=== PATIENT | male | born 1950 | race Two or more races ===

== ENCOUNTER 2024-11-12 10:30 | Day surgery (SDC) | payer MEDICAID, SELFPAY ==
--- NOTE | 2024-11-11 12:19 | EKG_ITS ---
[facility] Test Date: 2024-11-11 Pat Name: IDA CASTANEDA Department: Room: - Gender: Female Desk Maker: NAVA : 1950 Requested By: Seth Lockhart Order Number: [id number] Reading MD: Seth Lockhart Measurements Intervals [place] Rate: 59 P: 40 PA: 154 QRS: -5 QRSD: 104 T: 43 QT: 406 QTc: 405 Interpretive Statements SINUS BRADYCARDIA No previous ECG available for comparison /store/S0/[id number]/[id number]
[2024-11-11 12:23] VITALS: BMI 29.0
[2024-11-11 13:30] LABS: Basophils # (Auto) 0.1 Thou/mm3 (0.0-0.2); Basophils % (Auto) 2 % (0-2.5); Eosinophils # (Auto) 0.3 Thou/mm3 (0.0-0.5); Eosinophils % (Auto) 4 % (0-10); Hematocrit 44.5 % (36.0-46.0); Hemoglobin 14.7 g/dL (12.0-16.0); Immature Granulocytes % (Auto) 0 % (0-0); Immature Granulocytes Auto 0.02 Thou/mm3 (0.00-0.00); Lymphocytes # (Auto) 2.2 Thou/mm3 (1.0-4.8); Lymphocytes % (Auto) 31 % (10-50); Mean Corpuscular Hemoglobin 29.9 pg (25.0-35.0); Mean Corpuscular Volume 91 fL (80-100); Monocytes # (Auto) 0.4 Thou/mm3 (0.0-0.8); Monocytes % (Auto) 6 % (0-12); Neutrophils # (Auto) 4.1 Thou/mm3 (1.8-7.7); Neutrophils % (Auto) 57 % (37-80); Nucleated Red Blood Cell % 0 /100 WBC (0); Platelet Count 323 Thou/mm3 (140-440); Red Blood Count 4.91 Miln/mm3 (4.00-5.20); White Blood Count 7.2 Thou/mm3 (3.6-11.0)
[2024-11-11 13:46] LABS: Partial Thromboplastin Time 26.1 Seconds (22.0-36.0); Prothrombin Time 10.8 Seconds (9.0-12.2)
[2024-11-11 13:53] LABS: Alanine Aminotransferase 16 U/L (10-49); Albumin, Serum 4.6 gm/dL (3.4-4.8); Albumin/Globulin Ratio 1.5 (1.2-2.2); Alkaline Phosphatase 109 U/L (46-116); Anion Gap 9 (7-16); Aspartate Amino Transferase 22 U/L (0-34); BUN/Creatinine Ratio 17 Ratio (12-20); Bilirubin,Total 0.8 mg/dL (0.3-1.2); Blood Urea Nitrogen 15 mg/dL (9-23); Calcium 9.6 mg/dL (8.3-10.6); Calcium (Corrected) 9.6 mg/dL (8.5-10.1); Chloride 108 mMol/L (98-107); Creatinine (Component) 0.9 mg/dL (0.6-1.3); Estimated Creatinine Clearance 57.2 mL/min (>60); Glucose 100 mg/dL (74-106); Osmolality,Calculated 287 (275-295); Potassium 4.2 mMol/L (3.4-5.1); Sodium 144 mMol/L (136-145); Total Protein 7.6 gm/dL (5.7-8.2); eGFR > 60 See Note
--- NOTE | 2024-11-11 15:08 | SUR.PREOP ---
voice message left for pt to come in tomorrow at 0041
--- NOTE | 2024-11-11 15:33 | ESHP_ITS ---
RE: IDA AGARWAL : 1950 DATE OF ADMISSION: 11/11/2024 HISTORY OF PRESENT COMPLAINT: As per the patient, he has pain in the left shoulder. Pain is quite bad. Quality of life and activities of daily living is affected. The patient graded intensity of pain 10/10. The sleep is affected as well. The patient did physical therapy, but it did not improve. PAST MEDICAL HISTORY: No history of diabetes mellitus, high blood pressure, asthma, seizure, chest pain, myocardial infarction, bleeding disorder or stroke. PAST SURGICAL HISTORY: Nil. DRUG HISTORY: Nil, except pain medication on and off. ALLERGIES: NIL KNOWN. FAMILY HISTORY/SOCIAL HISTORY: The patient denies smoking, drinking and is not working. PHYSICAL EXAMINATION: GENERAL: Normal with person. VITAL SIGNS: Pulse 88 per minute, blood pressure is 136/84. NECK: Soft, supple. No mass felt. Trachea is unreplaced. CARDIOVASCULAR SYSTEM: First and second heart sounds normal. No murmur heard. LUNGS: Bilateral vascular breath sounds. CHEST: Clear. ABDOMEN: Soft, supple. No mass felt. Bowel sounds present. EXTREMITIES: Left shoulder examination reveals 2+ tenderness at AC joint. Active range of motion is 0 to 120 degrees of flexion and 0 to 80 degrees of abduction. Erica test is positive. Drop arm test is positive. Impingement test is positive as well. 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 There are osteophytes which are impinging on the rotator cuff. Detailed discussion took place with the patient. With the help of pictures, diagram, posters, and shoulder model, the procedure was explained to him. Detailed discussion took place about the pain and reason for the same. Risks of anesthesia were explained and that includes, but not limited to the reaction to the occasions, cardiac arrest, rarely it might be fatal. Risks with operation includes infection and if that happens, the patient may need further surgical procedure. Other risks include delayed healing wounds, etc.. No guarantee is given regarding the outcome of the procedure and/or relief of symptoms. Although MRI scan showed tendinitis, but with this kind of problem and pain, most of the time I do find a partial tear of the rotator cuff. The patient wants to proceed with surgery as he is unable to sleep at night at all. The patient is also cleared for surgical procedure by Dr. Serrato. ASSESSMENT AND PLAN: Surgery is booked for 11/12/2024. DT: 12:55:14 TT: 15:32:00 Ref: [id number] - TID: [id number]
[2024-11-12] VITALS (8 sets, daily range): BP systolic 92–148; BP diastolic 60–86; PULSE 38–79; RESP 12–22; TEMP 36.3–36.8; O2SAT 93–100; BMI 29.0
--- NOTE | 2024-11-12 14:55 | PD.SUROPNT ---
Date of Procedure 11/12/24 Pre Op Diagnosis 1. Left rotator cuff tear 2 left shoulder impingement syndrome Post Op Diagnosis Same Procedure 1. Excision lateral end of the clavicle 2 excision coracoacromial ligament 3 acromioplasty 4. Repair of rotator cuff 5. Manipulation under anesthesia Findings Patient has significant DJD at AC joint. Beside that there is a big osteophytes on the frontal aspect of the acromial process. There is a small osteophyte on the lateral aspect as well. There was a small oval tear of the rotator cuff but most of the fibers were attached to the greater tuberosity. Patient also has adhesive capsulitis Procedure Description The patient was given general endotracheal anesthesia. Left shoulder block was also given. Once satisfactory anesthesia was achieved patient was put in about 45?? sitting position with sandbag underneath the left shoulder blade. The part was thoroughly prepped and draped. A skin incision was made at the AC joint extending proximally towards the neck for a half inches and distally towards the arm for about couple of inches. Deeper dissection was carried out. Bleeding vessels were electrocoagulated as and when encountered. The soft tissue was reflected. Following that AC joint was exposed and AC joint was exposed. The deltoid muscle was reflected from the anterior and lateral aspect of the acromial process. It showed 2 to 3 mm anterior osteophytes which was touching the rotator cuff tendons. Beside that there is 1 to 2 mm lateral osteophytes coming out from the acromial process. Following that a periosteal elevator was placed underneath the lateral end of the clavicle and lateral 3-4 mm was excised. The coracoacromial ligament was removed. With the help of saw 2 mm of acromion process from the anterior aspect was removed along with 2 mm of osteophytes. Similarly on the lateral side 1 to 2 mm of the acromial process was removed along with osteophytes. With the help of curved osteotome the undersurface of the Acromial processes was chiseled out. That made more room between the superior surface of the head of the humerus and undersurface of the acromial process. Following that the rotator cuff was inspected. It revealed big oval tear, however most of the fibers were attached to the greater tuberosity. Wound was irrigated with antibiotic solution every 4-5 minutes. The left shoulder was manipulated at this time. The rotator cuff tear was repaired with 2-0 Vicryl. 2 drill holes were made on the acromial process and deltoid muscle was stitched back to it. Some reinforcement sutures were placed. The subcutaneous tissue was then closed with the help of 2-0 Vicryl and 3-0 Vicryl in layers. The skin was closed with jada. About 20 mL of quarter percent Marcaine was injected at his skin incision site After cleaning the wound with hydrogel proximal solution and sterile dressing was applied. Patient was taken to the recovery room in good condition. Estimated blood loss 20 mL. Prognosis in this case is good. Anesthesia GETA and other Pathology / specimen None Estimated Blood Loss 20 Surgeon Seth Leach MD Surgical Staff Operation Date: 11/12/24 14:45 Case Staff Anesthesiologist: Justino Jackson RN First Assistant: Lara Paredes
--- NOTE | 2024-11-12 15:12 | SUR.PHASEI ---
1512: Pt. arrived with oral airway in place, bradycardic, Mark JESUS made aware, remaining vitals stable, dressing to left shoulder CDI, no active bleed noted, bilateral radial pulses strong and regular, report recieved from Mark JESUS and Brad DE LA TORRE.
[2024-11-12] MEDS: fentaNYL CIT INJ 50 mCg/ML AMP 2ML IV ×3 (15:26→15:57)
[2024-11-12] MEDS: ACETAMINOPHEN IVPB 1,000 MG/100 ML VIAL 250 MG IV (15:29)
--- NOTE | 2024-11-12 16:30 | SUR.PHASEII ---
1630: Pt. getting dressed, pt. meets discharge criteria. Dressing to left shoulder CDI, no active bleed noted, pt. able to move bilateral arms, bilateral radial pulses strong and regular, pt. tolerated sips of water well, gave discharge instructions to the pt. and his ride using support associate, both verbalized understanding and had no further questions. Pt. has all personal belongings. Gave report to Nelly DE LA TORRE to chart pt. out and remove IV.
--- NOTE | 2024-11-12 17:11 | SUR.PHASEII ---
1630 patient is awake, alert, breathing unlabored, dressing to left shoulder dry with no bleeding, fingers to left hand with good circulation. Report received from Janie DE LA TORRE, Discharge instructions have been given by Janie DE LA TORRE, patient is ready to go home. Patient in PACU bay 1 accompanied by son and is going to get dressed. 1645 patient is awake, alert, breathing unlabored, dressing to left shoulder dry with no bleeding. Arm sling placed on patient's left shoulder, IV discontinued, patient discharged home in wheelchair with all belongings accompanied by son.
== END 2024-11-12 16:45 | disposition home or self-care (01) ==
PROVIDERS: Anesthesiology; PCP Nurse Practitioner Family; Referring Provider Orthopaedic Surgery; Visit Provider Orthopaedic Surgery
PROC: (CPT 23412; principal; 2024-11-12 14:30)
DX: M75.102 Unspecified rotator cuff tear or rupture of left shoulder, not specified as traumatic (principal); M75.42 Impingement syndrome of left shoulder; M19.012 Primary osteoarthritis, left shoulder; M75.02 Adhesive capsulitis of left shoulder; M25.712 Osteophyte, left shoulder
CPT/HCPCS: 23412; 23130; 23120; 36415; 80053; 85025; 85610; 85730; 93005; A4217; A4649; J0131; J0690; J1580; J1885; J2250; J2704; J2795; J3010; J3490; J7030; A9270

== ENCOUNTER 2025-03-18 06:10 | Day surgery (SDC) | payer MEDICAID, SELFPAY ==
[2025-03-17 11:29] VITALS: BMI 24.2
[2025-03-17 12:55] LABS: Basophils # (Auto) 0.1 Thou/mm3 (0.0-0.2); Basophils % (Auto) 1 % (0-2.5); Eosinophils # (Auto) 0.2 Thou/mm3 (0.0-0.5); Eosinophils % (Auto) 2 % (0-10); Hematocrit 44.1 % (41.0-53.0); Hemoglobin 14.5 g/dL (13.5-16.0); Immature Granulocytes Auto 0.02 Thou/mm3 (0.00-0.00); Lymphocytes # (Auto) 2.4 Thou/mm3 (1.0-4.8); Lymphocytes % (Auto) 31 % (10-50); Mean Corpuscular HGB Conc 32.9 g/dl (31.0-37.0); Mean Corpuscular Hemoglobin 29.0 pg (25.0-35.0); Mean Corpuscular Volume 88 fL (80-100); Monocytes # (Auto) 0.4 Thou/mm3 (0.0-0.8); Monocytes % (Auto) 5 % (0-12); Neutrophils # (Auto) 4.8 Thou/mm3 (1.8-7.7); Neutrophils % (Auto) 60 % (37-80); Nucleated Red Blood Cell # 0.00 Thou/mm3 (0.00-0.00); Nucleated Red Blood Cell % 0 /100 WBC (0); Platelet Count 284 Thou/mm3 (140-440); RDW Standard Deviation 40.5 fL (35.1-43.9); Red Blood Count 5.00 Miln/mm3 (4.50-5.90); White Blood Count 7.9 Thou/mm3 (3.8-10.6)
[2025-03-17 13:08] LABS: Alanine Aminotransferase 10 U/L (10-49); Albumin, Serum 4.7 gm/dL (3.4-4.8); Albumin/Globulin Ratio 1.7 (1.2-2.2); Alkaline Phosphatase 92 U/L (46-116); Anion Gap 9 (7-16); Aspartate Amino Transferase 19 U/L (0-34); BUN/Creatinine Ratio 11 Ratio (12-20); Bilirubin,Total 0.9 mg/dL (0.3-1.2); Blood Urea Nitrogen 11 mg/dL (9-23); Calcium 10.1 mg/dL (8.3-10.6); Calcium (Corrected) 10.1 mg/dL (8.5-10.1); Carbon Dioxide 28.7 mMol/L (20.0-31.0); Chloride 105 mMol/L (98-107); Creatinine (Component) 1.0 mg/dL (0.6-1.3); Estimated Creatinine Clearance 55.8 mL/min (>60); Globulin 2.7 gm/dL (2.3-3.5); Glucose 108 mg/dL (74-106); Osmolality,Calculated 285 (275-295); Potassium 4.8 mMol/L (3.4-5.1); Sodium 143 mMol/L (136-145); Total Protein 7.4 gm/dL (5.7-8.2); eGFR > 60 See Note
[2025-03-17 13:21] LABS: INR 1.0 (0.9-1.3); Partial Thromboplastin Time 24.2 Seconds (22.0-36.0); Prothrombin Time 10.7 Seconds (9.0-12.2)
[2025-03-18] VITALS (7 sets, daily range): BP systolic 122–160; BP diastolic 64–84; PULSE 55–66; RESP 14–20; TEMP 36.6–36.8; O2SAT 95–100; BMI 28.8
--- NOTE | 2025-03-18 08:20 | SUR.PHASEII ---
0820 Patient arrived to recovery resting comfortably in [facility], drowsy and talking with staff, on oxygen 4L via oxy mask, breathing unlabored, vital signs stable, denies pain, dressin intact to left shoulder, band-aid, arm sling, no bleeding noted, report received from Mark JESUS and Dafne DE LA TORRE
--- NOTE | 2025-03-18 08:23 | PD.SUROPNT ---
Date of Procedure 03/18/25 Pre Op Diagnosis Is status post left rotator cuff repair with Taras procedure with frozen shoulder Post Op Diagnosis Same Procedure Manipulation under anesthesia Application of 20 mL of quarter percent Marcaine and 80 mg Kenalog Findings Refer dictation Procedure Description Patient was given general anesthesia. Was satisfactory anesthesia was achieved the left shoulder was manipulated. Full range of abduction and full range of forward flexion was achieved. All the scar tissue and adhesions were broken. Following that about 20 mL of quarter percent Marcaine along with 80 mg of Kenalog was injected Patient tolerated procedure well. Cemented blood loss none Anesthesia MAC Pathology / specimen None Estimated Blood Loss 0 Surgeon Seth Leach MD Surgical Staff Operation Date: 03/18/25 07:45 <No data on this case meets the specified criteria>
--- NOTE | 2025-03-18 08:45 | SUR.PHASEII ---
called patients son to pick him up, he states it would be 2 hours or more until her could car pick up driver his father
--- NOTE | 2025-03-18 09:05 | SUR.PHASEII ---
0905 patient meets discharge criteria from recovery, awake and alert, breathing unlabored, vital signs stable, denies pain, dressing intact; no bleeding noted, patient disconnected from the vital signs monitor and dressed in his clothing awaiting his ride
--- NOTE | 2025-03-18 11:10 | SUR.PHASEII ---
1100 Patients ride arrived, discharge instruction given to patient and patients son with the assistance of the telephone manager of change [employer] ID# [id number], patients son signed discharge instructions. 1110 Patient given all his belongings prior to discharge, transported via wheelchair and left in a private vehicle.
== END 2025-03-18 11:10 | disposition home or self-care (01) ==
PROVIDERS: Anesthesiology; Referring Provider Orthopaedic Surgery; Visit Provider Orthopaedic Surgery
PROC: (CPT 23700; principal; 2025-03-18 07:30)
DX: M75.02 Adhesive capsulitis of left shoulder (principal)
CPT/HCPCS: 23700; 36415; 80053; 85025; 85610; 85730; A4217; J0131; J1885; J2704